=== PATIENT | male | born 1965 | race African-American/Black ===

== ENCOUNTER 2018-01-31 12:20 | Emergency (ER) | payer BC ==
[~2018-01-31] VITALS: Ht 182.9 cm; Wt 118.2 kg
[~2018-01-31 12:20] MED LIST: HYDROCODON-ACE1 EAC7 PO
[2018-01-31 12:35] VITALS: Ht 182.9 cm; Wt 118.2 kg
[2018-01-31 16:27] LABS: BASOPHILS 0.2 % (0-2); EOSINOPHILS 5.5 % (0-7); HEMATOCRIT 42.2 % (42.0-54.0); HEMOGLOBIN 14.1 g/dL (13.5-17.5); LYMPHOCYTES 22.6 % (15-50); MCHC 33.4 g/dL (31.0-37.0); MCV 98.8 fL (80.0-100.0); MEAN PLATELET VOLUME 9.7 fL (7.4-10.4); MONOCYTES 8.2 % (2-11); NEUTROPHILS 63.5 % (40-80); PLATELET COUNT 157 10x3/uL (130-400); RBC 4.27 10x6/uL (4.20-6.10); RDW 12.9 % (11.5-14.5); WBC 5.3 10x3/uL (4.8-10.8)
[2018-01-31 16:42] LABS: ALBUMIN 3.5 g/dL (3.4-5.0); ANION GAP 7.6 mmol/L (8-16); BILIRUBIN - TOTAL 0.55 mg/dL (0.2-1.3); CALCIUM 8.9 mg/dL (8.5-10.1); CARBON DIOXIDE 30.6 mmol/L (21.0-32.0); CREATININE - SERUM 1.3 mg/dL (0.6-1.3); POTASSIUM - SERUM 4.2 mmol/L (3.5-5.1); PROTEIN - SERUM 7.3 g/dL (6.4-8.2)
[2018-01-31] MEDS ORDERED: COLCRYS0.6 MG PO (17:00)
[2018-01-31] MEDS ORDERED: HYDROCODON-ACE1 EAC7 PO (17:00)
[2018-01-31 17:35] VITALS: BP 162/79
== END 2018-01-31 17:34 | disposition home or self-care (01) ==
LOC: D.ER 12:20
PROVIDERS: Emergency Medicine
DX: S93.402A Sprain of unspecified ligament of left ankle, initial encounter (principal); X58.XXXA Exposure to other specified factors, initial encounter; Y93.89 Activity, other specified; Y92.89 Other specified places as the place of occurrence of the external cause; M10.072 Idiopathic gout, left ankle and foot; S93.602A Unspecified sprain of left foot, initial encounter; F17.200 Nicotine dependence, unspecified, uncomplicated

== ENCOUNTER 2018-09-03 16:23 | Emergency (ER) | payer MEDICAID ==
[~2018-09-03] VITALS: Ht 182.9 cm; Wt 121.8 kg
[~2018-09-03 16:23] MED LIST changes: +COLCRYS0.6 MG PO
[2018-09-03 16:39] VITALS: Ht 182.9 cm; Wt 121.8 kg
[2018-09-03 17:22] LABS: BASOPHILS 0.1 % (0-2); EOSINOPHILS 1.7 % (0-7); HEMATOCRIT 42.7 % (42.0-54.0); HEMOGLOBIN 14.3 g/dL (13.5-17.5); IMMATURE GRANULOCYTES 0.1 % (0-5); LYMPHOCYTES 15.4 % (15-50); MCH 33.3 pg (26.0-34.0); MCHC 33.5 g/dL (31.0-37.0); MCV 99.3 fL (80.0-100.0); MEAN PLATELET VOLUME 10.9 fL (7.4-10.4); MONOCYTES 11.8 % (2-11); NEUTROPHILS 70.9 % (40-80); PLATELET COUNT 138 10x3/uL (130-400); RDW 12.3 % (11.5-14.5); WBC 7.1 10x3/uL (4.8-10.8)
[2018-09-03 17:40] LABS: ALBUMIN 3.5 g/dL (3.4-5.0); ANION GAP 15.5 mmol/L (8-16); BILIRUBIN - TOTAL 0.3 mg/dL (0.2-1.3); CARBON DIOXIDE 25.7 mmol/L (21.0-32.0); CREATININE - SERUM 1.2 mg/dL (0.6-1.3); POTASSIUM - SERUM 4.2 mmol/L (3.5-5.1); PROTEIN - SERUM 7.5 g/dL (6.4-8.2)
[2018-09-03] MEDS ORDERED: ZYLOPRIM100 MG PO (18:18)
[2018-09-03] MEDS ORDERED: TORADOL10 MG PO (18:18)
[2018-09-03] MEDS ORDERED: COLCRYS0.6 MG PO (18:18)
[2018-09-03] MEDS ORDERED: INDOCIN25 MG PO (18:20)
[2018-09-03 19:08] VITALS: BP 153/98
== END 2018-09-03 19:09 | disposition home or self-care (01) ==
LOC: D.ER 16:23
PROVIDERS: Emergency Medicine
DX: M10.061 Idiopathic gout, right knee (principal)

== ENCOUNTER 2019-03-25 09:15 | Emergency (ER) | payer MEDICAID ==
[~2019-03-25] VITALS: Ht 185.4 cm; Wt 122.7 kg
[~2019-03-25 09:15] MED LIST changes: +INDOCIN25 MG PO; +TORADOL10 MG PO; +ZYLOPRIM100 MG PO
[2019-03-25 09:41] VITALS: Ht 185.4 cm; Wt 122.7 kg
[2019-03-25] MEDS ORDERED: COLCRYS0.6 MG PO (10:30)
[2019-03-25] MEDS ORDERED: ZYLOPRIM100 MG PO (10:30)
[2019-03-25 10:44] VITALS: BP 142/88
== END 2019-03-25 10:44 | disposition home or self-care (01) ==
LOC: D.ER 09:15
DX: M10.9 Gout, unspecified (principal)

== ENCOUNTER 2020-09-26 17:20 | Inpatient (IN) | payer MEDICAID ==
[~2020-09-26] VITALS: Ht 185.4 cm; Wt 127.0 kg
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
[2020-09-26 17:40] LABS: BASOPHILS 0.3 % (0-2); EOSINOPHILS 2.5 % (0-7); HEMATOCRIT 42.6 % (42.0-54.0); HEMOGLOBIN 13.9 g/dL (13.5-17.5); IMMATURE GRANULOCYTES 0.3 % (0-5); LYMPHOCYTE ABS# 1.37 10x3/uL (1.32-3.57); LYMPHOCYTES 19.4 % (15-50); MCH 32.8 pg (26.0-34.0); MCHC 32.6 g/dL (31.0-37.0); MCV 100.5 fL (80.0-100.0); MEAN PLATELET VOLUME 10.9 fL (7.4-10.4); NEUTROPHILS 66.5 % (40-80); PLATELET COUNT 149 10x3/uL (130-400); RBC 4.24 10x6/uL (4.20-6.10); RDW 13.2 % (11.5-14.5); WBC 7.1 10x3/uL (4.8-10.8)
[2020-09-26 17:49] LABS: APTT 32.2 SECONDS (22.8-39.4); INR 1.12 (0.85-1.17); PROTIME 13.3 SECONDS (11.6-15.0)
[2020-09-26 17:58] LABS: CALCIUM 8.7 mg/dL (8.5-10.1); CARBON DIOXIDE 27.9 mmol/L (21.0-32.0); CREATININE - SERUM 1.2 mg/dL (0.6-1.3); POTASSIUM - SERUM 3.9 mmol/L (3.5-5.1)
[2020-09-26 18:23] LABS: ALBUMIN 3.1 g/dL (3.4-5.0); BILIRUBIN - TOTAL 0.48 mg/dL (0.2-1.3); PROTEIN - SERUM 6.8 g/dL (6.4-8.2)
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
--- NOTE | 2020-09-26 21:30 | NUR ---
PT BROUGHT TO FLOOR AOX4. MOM AT BEDSIDE. CUT PT SWEATPANTS OFF AND PROPPED RIGHT FOOT ON PILLOW. PT PLACED IN YELLOW GOWN. FROY CLENS SUPPLIES BROUGHT TO ROOM. MOM AT BEDSIDE, STATES SHE IS A NURSE AND CAN GIVE BATH. INSTRUCTED HOW TO USE CHG. VERBALIZED UNDESTANDING. PREOP EKG DONE AT THIS TIME. IV RIGHT FA INFUSING NS @ 100. CONSENTS SIGNED AT THIS TIME WITH SECOND NURSE WITNESS. PROVIDED PT WITH TURKEY SANDWICH AND JELLO. REMINDED PT HE NPO AFTER MIDNIGHT. DENIES OTHER NEEDS AT THIS TIME. CL IN REACH, BED ALARM ON.
[2020-09-27] VITALS: BMI 37.0
[2020-09-27 04:00] VITALS: BP 132/75
[2020-09-27 06:58] LABS: ANION GAP 12.2 mmol/L (8-16); BILIRUBIN - TOTAL 0.37 mg/dL (0.2-1.3); CALCIUM 8.6 mg/dL (8.5-10.1); CARBON DIOXIDE 26.9 mmol/L (21.0-32.0); CREATININE - SERUM 1.1 mg/dL (0.6-1.3); MAGNESIUM - SERUM 2.2 mg/dL (1.8-2.4); PHOSPHOROUS 3.4 mg/dL (2.5-4.9); POTASSIUM - SERUM 4.1 mmol/L (3.5-5.1); PROTEIN - SERUM 6.7 g/dL (6.4-8.2)
[2020-09-27 07:16] LABS: BASOPHILS 0.2 % (0-2); EOSINOPHILS 2.7 % (0-7); HEMATOCRIT 40.7 % (42.0-54.0); HEMOGLOBIN 13.2 g/dL (13.5-17.5); IMMATURE GRANULOCYTES 0.2 % (0-5); LYMPHOCYTE ABS# 1.14 10x3/uL (1.32-3.57); LYMPHOCYTES 20.3 % (15-50); MCH 32.6 pg (26.0-34.0); MCHC 32.4 g/dL (31.0-37.0); MCV 100.5 fL (80.0-100.0); MEAN PLATELET VOLUME 11.4 fL (7.4-10.4); MONOCYTES 13.2 % (2-11); NEUTROPHIL ABS# 3.56 10x3/uL (1.78-5.38); NEUTROPHILS 63.4 % (40-80); PLATELET COUNT 154 10x3/uL (130-400); RBC 4.05 10x6/uL (4.20-6.10); RDW 13.3 % (11.5-14.5); WBC 5.6 10x3/uL (4.8-10.8)
[2020-09-27 08:38] VITALS: BP 122/91
--- NOTE | 2020-09-27 09:00 | NUR ---
ALERT AND ORIENTED WITH FAMILY AT BEDSIDE DRESSING AND SPLIT INTACT TO RLE WITH CAP REFILL <3 SEC. DENIES ANY PAIN OR DISCOMFORT At THIS TIME AND ENCOURAGED TO USE CALL LIGHT FOR ASSSIT.
[2020-09-27 12:34] VITALS: BP 134/93
[2020-09-27 15:51] VITALS: Ht 185.4 cm; Wt 127.0 kg
[2020-09-27 18:03] VITALS: BP 112/67
--- NOTE | 2020-09-27 18:06 | NUR ---
RETURED TO ROOM. O2 3L N/C ALERT AND ORIENTED. DRESSING AND SPLINT INTACT TO RLE WITH CAP REFILL<3 SEC. IVF INFUSING AT PRESCRIBED RATE. DENIES ANY PAIN OR DISCOMFORT AT THIS TIME AND ENCOURAGED TO BEAN CALL LIGHT FOR ASSIT.
--- NOTE | 2020-09-27 19:45 | NUR ---
RECEIVED BEDSIDE REPORT. PT LAYING IN BED A&O X4. PIV TO RIGHT FOREARM, PATENT AND INFUSING, NO REDNESS OR SWELLING. INCISION TO RIGHT FOOT, DRSG C/D/I. ABLE TO AMBULATE WITH MOD ASSIST. EDUCATED PT ON CL AND NEEDS, VERBALIZED UNDERSTANDING. BED LOW, ALARM ON, CL IN REACH.
[2020-09-27 21:12] VITALS: BP 145/82; BP 192/66
[2020-09-28 05:46] VITALS: BP 130/55
[2020-09-28 06:31] LABS: BASOPHILS 0 % (0-2); EOSINOPHILS 0.4 % (0-7); HEMOGLOBIN 11.8 g/dL (13.5-17.5); IMMATURE GRANULOCYTES 0.2 % (0-5); LYMPHOCYTE ABS# 0.71 10x3/uL (1.32-3.57); LYMPHOCYTES 13.6 % (15-50); MCH 32.4 pg (26.0-34.0); MCHC 31.9 g/dL (31.0-37.0); MCV 101.6 fL (80.0-100.0); MONOCYTES 12.9 % (2-11); NEUTROPHILS 72.9 % (40-80); PLATELET COUNT 148 10x3/uL (130-400); RBC 3.64 10x6/uL (4.20-6.10); WBC 5.2 10x3/uL (4.8-10.8)
[2020-09-28 06:35] LABS: ANION GAP 9.5 mmol/L (8-16); CALCIUM 8.1 mg/dL (8.5-10.1); CARBON DIOXIDE 28.2 mmol/L (21.0-32.0); MAGNESIUM - SERUM 2.4 mg/dL (1.8-2.4); PHOSPHOROUS 3.5 mg/dL (2.5-4.9); POTASSIUM - SERUM 4.7 mmol/L (3.5-5.1)
[2020-09-28 06:36] LABS: CREATININE - SERUM 1.4 mg/dL (0.6-1.3)
[2020-09-28 09:15] VITALS: BP 99/63
[2020-09-28 12:53] LABS: UDS - AMPHET NEGATIVE QUAL (NEGATIVE); UDS - BARB NEGATIVE QUAL (NEGATIVE); UDS - BENZO POSITIVE QUAL (NEGATIVE); UDS - COCAINE POSITIVE QUAL (NEGATIVE); UDS - OPIATE POSITIVE QUAL (NEGATIVE); UDS - PCP NEGATIVE QUAL (NEGATIVE); UDS - THC NEGATIVE QUAL (NEGATIVE)
[2020-09-28 12:56] LABS: BACTERIA FEW HPF (NONE SEEN); BILIRUBIN NEGATIVE (NEGATIVE); KETONE NEGATIVE (NEGATIVE); NITRITE NEGATIVE (NEGATIVE); SQUAMOUS EPITHELIAL 0-5 HPF (0-4); UROBILINOGEN NORMAL mg/dL (< 2); WHITE CELLS - URINE 0-5 HPF (0-1)
[2020-09-28 13:50] VITALS: BP 106/60
[2020-09-28 18:34] VITALS: BP 99/65
--- NOTE | 2020-09-28 19:36 | NUR ---
PATIENT RESTING IN BED WITH GUEST AT BEDSIDE AND NO S/S OF DISTRESS. IV INFUSING TO RIGHT FA. NO REDNESS, SWELLING, OR PAIN NOTED. BROUGHT PATIENT A DRINK PER HIS REQUEST, PATIENT DENIES OTHER NEEDS AT THIS TIME. BED IN LOWEST POSITION AND CALL LIGHT IN REACH. ENCOURAGED PATIENT TO CALL WITH NEEDS.
[2020-09-28 20:00] VITALS: BP 120/65
--- NOTE | 2020-09-28 20:37 | NUR ---
ADMINISTERED MEDS PER ORDERS. PATIENT KARTIK WELL. ENCOURAGED TO CALL WITH NEEDS.
[2020-09-29] VITALS: BP 120/84; BP 153/76
[2020-09-29 04:00] VITALS: BP 153/75
[2020-09-29 07:21] LABS: BASOPHILS 0.3 % (0-2); EOSINOPHILS 4.1 % (0-7); HEMOGLOBIN 11.4 g/dL (13.5-17.5); IMMATURE GRANULOCYTES 0.3 % (0-5); LYMPHOCYTE ABS# 1.14 10x3/uL (1.32-3.57); LYMPHOCYTES 30.9 % (15-50); MCH 32.1 pg (26.0-34.0); MCHC 31.7 g/dL (31.0-37.0); MCV 101.4 fL (80.0-100.0); MEAN PLATELET VOLUME 11.2 fL (7.4-10.4); MONOCYTES 12.2 % (2-11); NEUTROPHIL ABS# 1.93 10x3/uL (1.78-5.38); NEUTROPHILS 52.2 % (40-80); PLATELET COUNT 146 10x3/uL (130-400); RBC 3.55 10x6/uL (4.20-6.10); RDW 12.9 % (11.5-14.5)
[2020-09-29 07:22] LABS: WBC 3.7 10x3/uL (4.8-10.8)
[2020-09-29 07:25] LABS: CALC OSMOLALITY 287 mosm/kg (275-300); CALCIUM 8.5 mg/dL (8.5-10.1); CARBON DIOXIDE 27.7 mmol/L (21.0-32.0); CHLORIDE - SERUM 110 mmol/L (98-107); GLUCOSE 125 mg/dL (74-106); PHOSPHOROUS 2.9 mg/dL (2.5-4.9); POTASSIUM - SERUM 4.5 mmol/L (3.5-5.1); SODIUM 144 mmol/L (136-145); UREA NITROGEN 13 mg/dL (7-18); eGFR NON AFRICAN AMERICAN 82 mL/min (90-120)
--- NOTE | 2020-09-29 08:30 | NUR ---
PATIENT IN BED WITH EYES CLOSED RESTING QUIETLY. CALL LIGHT WITHINR EACH.
[2020-09-29 10:07] VITALS: BP 127/71
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
[2020-09-29 14:15] VITALS: BP 145/94
--- NOTE | 2020-09-29 17:59 | NUR ---
PATIENT IN BED WITH FAMILY AT BEDSIDE. PATIENT RECIEVED PAIN MEDS. IV INTACT. CALL LIGHT WITHIN REACH.
[2020-09-29 18:03] VITALS: BP 141/96
[2020-09-29 20:00] VITALS: BP 158/88
--- NOTE | 2020-09-30 03:00 | NUR ---
I have reviewed this patient and I concur with the Shift Assessment completed by the Licensed Practical Nurse today this shift.
[2020-09-30 04:00] VITALS: BP 143/88
[2020-09-30 05:54] LABS: BASOPHILS 0.5 % (0-2); EOSINOPHILS 4.8 % (0-7); HEMATOCRIT 36.9 % (42.0-54.0); LYMPHOCYTE ABS# 1.21 10x3/uL (1.32-3.57); LYMPHOCYTES 28.9 % (15-50); MCHC 32.5 g/dL (31.0-37.0); MCV 101.4 fL (80.0-100.0); MONOCYTES 10.7 % (2-11); NEUTROPHIL ABS# 2.31 10x3/uL (1.78-5.38); NEUTROPHILS 55.1 % (40-80); PLATELET COUNT 169 10x3/uL (130-400); RBC 3.64 10x6/uL (4.20-6.10); RDW 12.8 % (11.5-14.5); WBC 4.2 10x3/uL (4.8-10.8)
[2020-09-30 06:16] LABS: ANION GAP 8.8 mmol/L (8-16); CALCIUM 8.6 mg/dL (8.5-10.1); CARBON DIOXIDE 31.7 mmol/L (21.0-32.0); CREATININE - SERUM 1.1 mg/dL (0.6-1.3); MAGNESIUM - SERUM 1.9 mg/dL (1.8-2.4); PHOSPHOROUS 3.4 mg/dL (2.5-4.9); POTASSIUM - SERUM 4.5 mmol/L (3.5-5.1)
--- NOTE | 2020-09-30 07:28 | NUR ---
PATIENT SITTING UP IN BED, MOTHER AT BEDSIDE, NO SIGNS OF DISTRESS. NO NEEDS VOICED BY EITHER PATIENT OR GUEST. CL IN REACH BED IN LOWEST POSITION. CONTINUE WITH PLAN OF CARE
[2020-09-30 08:35] VITALS: BP 162/90
--- NOTE | 2020-09-30 08:59 | NUR ---
FAMILY IN ROOM WITH PATIENT. HE IS WITHOUT DISTRESS.MONITOR FOR NEEDS
--- NOTE | 2020-09-30 11:29 | NUR ---
DANETTE BRACE AND LIMB BROUGHT PATIENT BOOT, STATED PATIENT IS TO BE NWB, UNKNOWN WHEN BOOT IS TO BE PLACED. MOTHER AT BEDSIDE, ADMINISTERED PRN PAIN MEDICATION. NOT OTHER NEEDS AT THIS TIME. COTNINUE WITH PLAN OF CARE
[2020-09-30 12:52] VITALS: BP 155/92
--- NOTE | 2020-09-30 13:07 | MORECARE ---
CASE MANAGEMENT DISCHARGE SUMMARY PATIENT: MAKEDA SALDAÑA UNIT: [id number] ADM DATE: 09/26/20 AGE: 54 : 63 SEX: M ROOM/BED: D.2236 AUTHOR: JACINTA,DOC PHYSICIAN: REFERRING PHYSICIAN: AYALA IVORY MD DATE OF SERVICE: 09/30/20 Case Management Discharge Planning Summary COMMENTS ENTERED DATE: 09/30/20 12:57 CT COMMENT TYPE: Discharge Planning REVIEWER: Camilla Tomas CM met with patient at bedside after obtaining verbal consent. CM discussed availability / needs of home health, REHAB and medical equipment. Patient states lives with mother. Will need a walker for home. His ortho boot is in the room. KT for [employer] dme. I have faxed order, waiting delivery of walker to room. I anticipate patient to dc to home today. DCP REVIEW SUMMARY ANTICIPATED D/C DATE: EXPECTED LOS : CASE STATUS: DCP Initiated INITIAL REVIEW: 09/26/2020 INITIAL REVIEWER: Camilla Tomas FINAL DISCHARGE DISPOSITION: : FINAL REVIEWER: FINAL REVIEW DATE: DCP Focus Questions & Answers DCP Screen QUESTION: ANSWER Walking limitation: Patient stated self rated walking limitation present? : Yes Age: : 44 - 63 Prior living environment: : Lives with others Disability ranking: : Grade 3: Moderate disability DCP Evaluation QUESTION: ANSWER Patient's ability to cope with chronic illness : d. No chronic illness Would patient like to participate in any Care Coordination programs (if applicable): : Not applicable Mental health screen: : No mental health history DCP Re-evaluation QUESTION: ANSWER Would patient like to participate in any Care Coordination programs (if applicable): : Not applicable PATIENT: MAKEDA SALDAÑA ENCOUNTER: [id number] MEDICAL RECORD#: [id number] ADMISSION DATE: 09/26/2020 DISCHARGE DATE: ATTENDING MD: AYALA KENDALL : AGE: 54 MARITAL STATUS: X DC PLAN ID: [id number] FACILITY: [facility] PRINTED ON: 09/30/20 13:06 CT All edits/amendments must be made on the electronic document DICTATION DATE: 09/30/20 1306 CLAIMS ADJUSTER SUPERVISOR: MYRON 09/30/20 1306 RPT#: [id number] DC DATE: STATUS: ADM IN [facility] [address] [place] [address] END OF REPORT
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
[2020-09-30] MEDS ORDERED: CEPHALEXIN500 M1 PO (16:35)
[2020-09-30] MEDS ORDERED: HYDROCODONE-AC1 EAC2 PO (16:35)
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
== END 2020-09-30 17:15 | disposition home or self-care (01) | DRG 501 ==
LOC: D.ER 17:20 → D.MS 18:40
PROVIDERS: Family Medicine; ADMIT Family Medicine; ATTEND Family Medicine
PROC: 0QSN04Z Reposition Right Metatarsal with Internal Fixation Device, Open Approach (ICD-10-PCS; principal; 2020-09-26)
PROC: 0JQQ0ZZ Repair Right Foot Subcutaneous Tissue and Fascia, Open Approach (ICD-10-PCS; 2020-09-26)
DX: S92.311B Displaced fracture of first metatarsal bone, right foot, initial encounter for open fracture (principal); N17.9 Acute kidney failure, unspecified; W32.0XXA Accidental handgun discharge, initial encounter; S92.24 Fracture of medial cuneiform; F17.200 Nicotine dependence, unspecified, uncomplicated